=== PATIENT | female | born 1975 | race Caucasian/White ===

== ENCOUNTER 2017-04-19 14:04 | Emergency (ER) | payer MEDICAID, SELFPAY ==
[2017-04-19 14:05] VITALS: BP 168/119; PULSE 123; RESP 18; TEMP 36.8; O2SAT 98; BMI 18.3
[2017-04-19 14:28] LABS: Bacteria 0 SEEN /hpf (None Seen); Mucous, Urine 0 SEEN /hpf (<or=2+); Squamous Epithelial Cells - UA 0 SEEN /hpf (5-10)
[2017-04-19 14:33] LABS: Color, Urine Red (Yellow); Glucose, Dipstick Normal (Normal); Ketone-Dipstick 5 mg/dl (Negative); Leukocyte Esterase-Dipstick 500 /ul (Negative); Nitrite-Dipstick Negative (Negative); Occult Blood-Urine 250 /ul (Negative); Protein-Dipstick 500 mg/dl (Negative); Urine Bilirubin Dipstick Negative (Negative); Urine Clarity Turbid (Clear); Urine Urobilinogen Normal (Normal)
--- NOTE | 2017-04-19 14:33 | ED.VISSUMM ---
- ER Visit Summary Date of Service: 04/19/17 Chief Complaint: Dysuria, frequency, urgency and low back pain History of Present Illness: The patient is a 41 F who has history of urinary tract infections. No history of pyelonephritis. She denies headache, visual, ocular or auditory symptoms. She denies fever, chills or night sweats. She denies any cardiac, respiratory or abdominal symptoms. There is no history of trauma. She has no antibiotic allergies. Physical Examination: Vital signs are remarkable for an elevated blood pressure 168/119 and a heart rate 123. She appears uncomfortable. HEENT exam is unremarkable. Heart is regular without murmur, gallop or rub. S1 and S2 are normal. Lungs are clear to auscultation with good movement of air bilaterally. Abdomen is remarkable for tenderness in the suprapubic region. There is no CVA tenderness noted. There is no evidence of inguinal hernia or inguinal lymphadenopathy. No skin lesions are noted. Neuro exam is nonfocal. Test Results: Urine reveals leukoesterase 500 and blood 250 with 5 ketones. Micro reveals 0 WBCs greater than 100 RBCs and 0 epithelial cells. Emergency Department Course and Treatment: UA was obtained. Treatment Plan: Was reevaluated and she has suprapubic discomfort describes a burning pressure sensation when she urinates. Presently she has no pain. She only has discomfort when she urinates. She has no vaginal lesions or discharge. She denies dyspareunia. Disposition: Prescription for Pyridium and ciprofloxacin. Impression: Area with gross hematuria suspect hemorrhagic cystitis This note was generated with [employer] dictation software. It may contain incorrect words, spelling, and punctuation that were not noted in review of the chart prior to signing ED Disposition - Plan for ED Patient: Disposition: Home or Assisted Living Chief Complaint: Complaint Instructions: ED UTI Cystitis Female Prescriptions: Ciprofloxacin [Cipro] 500 mg PO BID #14 tab Phenazopyridine HCl [Pyridium] 200 mg PO TID #10 tab Referrals: Wilbur Andrade MD [Primary Care Provider] - 3-5 Days if not improving
[2017-04-19 14:43] LABS: Red Blood Cells-Urine > 100 SEEN /hpf (0-5); White Blood Cells 0-5 SEEN /hpf (0-5)
[2017-04-19 14:48] LABS: Absolute Lymphocyte Count 1.46 X10^3/ul (0.83-4.51); Absolute Neutrophil Count 7.3 X10^3/uL (2.0-7.7); Basophil# 0.01 X10^3/uL; Basophil% 0.1 % (0-1); Eosinophil# 0.08 X10^3/uL; Eosinophils% 0.9 % (0-5); Hematocrit 45.9 % (37-47); Hemoglobin 16.2 g/dl (12.0-15.0); Lymphocyte # 1.46 X10^3/ul (4.0); Lymphocyte % 15.6 % (19-41); Mean Corp Hgb Conc 35.3 g/gl (32-36); Mean Corpuscular Hgb 30.9 pg (27.0-32.0); Mean Corpuscular Volume 87.6 fL (81-99); Mean Platelet Vol. 10.8 fl (6.2-12.0); Monocyte# 0.46 X10^3/uL; Monocyte% 4.9 % (0-10); Neutrophil # 7.32 X10^3/uL (2.7-7.7); Neutrophil % 78.4 % (47-70); POSITIVE COUNT NO; POSITIVE DIFFERENTIAL NO; POSITIVE MORPHOLOGY NO; Platelet Count 198 K/mm3 (150-450); RBC Distribution Width CV 12.3 % (11.6-14.6); RBC Distribution Width SD 39.5 fl (35.1-43.9); Red Blood Count 5.24 M/mm3 (4.2-5.4); White Blood Count 9.3 K/mm3 (4.4-11.0)
[2017-04-19 15:00] LABS: Anion Gap 8 (5-15); BUN 12 mg/dL (7-18); BUN/Creat Ratio 15.9 RATIO (10-20); Calcium,Total 9.2 mg/dL (8.5-10.1); Chloride 104 mmol/L (98-107); Creatinine, Serum 0.76 mg/dL (0.55-1.02); EST Glomerular Filtration Rate 90 mL/min (>60); Est Glom Filt Rate - Afr Amer 109 mL/min (>60); Estimated Creatinine Clearance 71.38 ml/min; Glucose 89 mg/dL (74-106); Potassium 2.9 mmol/L (3.5-5.1); Sodium Level 141 mmol/L (136-145)
[2017-04-19] MEDS: Phenazopyridine 95 MG Tablet 190 MG PO (15:23)
[2017-04-19] MEDS: Ciprofloxacin 500 MG Tablet PO (15:23)
[2017-04-19 15:24] VITALS: BP 165/120; PULSE 105; RESP 17; O2SAT 99
== END 2017-04-19 15:32 | disposition home or self-care (01) ==
PROVIDERS: Emergency Provider Emergency Medicine; Family Provider Family Medicine; PCP Family Medicine
DX: R30.0 Dysuria (principal); R31.0 Gross hematuria; R03.0 Elevated blood-pressure reading, without diagnosis of hypertension; Z72.0 Tobacco use; Z87.440 Personal history of urinary (tract) infections
CPT/HCPCS: 80048; 81001; 85025; 99283

== ENCOUNTER 2017-06-25 14:54 | Emergency (ER) | payer MEDICAID, SELFPAY ==
[2017-06-25] VITALS (7 sets, daily range): BP systolic 120–210; BP diastolic 78–137; PULSE 67–102; RESP 14–18; TEMP 37.2; O2SAT 97–100; BMI 18.4
--- NOTE | 2017-06-25 16:38 | CT_ITS ---
STUDY: CT BRAIN WITHOUT CONTRAST REASON FOR EXAM: Female, 41 years old. Headache. Hypertension. RADIATION DOSAGE (If Supplied By Facility): CTDIvol = ( 44.99 ) mGy, DLP = ( 745.49 ) mGycm TECHNIQUE: Transaxial CT imaging of the brain was performed without administration of intravenous contrast material. Individualized dose optimization techniques were used for this CT. COMPARISON: None. FINDINGS: There is no acute bleed or infarct. There are normal white matter tracts. The ventricles are normal in configuration. There is no hydrocephalus. The visualized paranasal sinuses are clear. The mastoid air cells are well aerated. There is no skull fracture. CT/Brain/Head without Contrast IMPRESSION: No acute intracranial abnormality. Electronically Signed: Eyad Perla, at 17:28 EDT Tel , Service support ,
--- NOTE | 2017-06-25 16:42 | ED.VISSUMM ---
- ER Visit Summary Date of Service: 06/25/17 Chief Complaint: Blood pressure and headache History of Present Illness: The patient is a 41 F past medical history of migraine headaches. States yesterday she went to the dentist had elevated blood pressures of 160s over 120s. They wanted her to be evaluated but she could make the ER till today. She has never been told she had hypertension. She has not seen a doctor for more than 6 months and cannot remember her last blood pressure readings. She denies being ill. She did state today she did get a diffuse headache different from her migraines. She denies vomiting she denies fever. She denies head trauma. Physical Examination: Well-appearing young female. Blood pressure is elevated at 181/128. Otherwise vital signs are stable afebrile. H EENT exam unremarkable. Pupils round reactive light. No facial droop. Normal speech. Neck nontender. Lungs clear to auscultation bilaterally. Heart regular rhythm no murmur. Abdomen soft nontender. Normal bowel sounds no peritoneal signs. Moving all 4 extremities. Neurovascular intact. Neurologic exam normal. NIH is 0. Bilateral fire operations forester strength. 5 out of 5 dorsi plantarflexion. Normal range of motion upper lower extremities. Fingertip to nose heel to daniels all within normal limits. Test Results: CT of his brain shows no acute abnormality. No bleed. Read by the radiologist reviewed by me. CBC normal. BMP normal with normal renal function. Emergency Department Course and Treatment: The labs be obtained. She will be started on lisinopril for new onset hypertension. Tylenol for it. Treatment Plan: Patient was initially treated with oral antihypertensive. Then hydralazine IV ?2 dosages. Patient is doing much better at this time. Her blood pressure currently is 130/70. Her headache is resolved. She remains neurologically intact. We a long discussion about hypertension. She will follow-up with her primary care physician. She will be started on lisinopril 20 mg once a day. She knows to log her blood pressure. Disposition: discharge Impression: New onset hypertension Acute cephalgia This note was generated with [employer] dictation software. It may contain incorrect words, spelling, and punctuation that were not noted in review of the chart prior to signing ED Disposition - Plan for ED Patient: Chief Complaint: Headache Referrals: Wilbur Andrade, [Primary Care Provider] -
--- NOTE | 2017-06-25 16:45 | ED.DCSUM_ITS ---
- ER Visit Summary Date of Service: 06/25/17 Chief Complaint: Blood pressure and headache History of Present Illness: The patient is a 41 F past medical history of migraine headaches. States yesterday she went to the dentist had elevated blood pressures of 160s over 120s. They wanted her to be evaluated but she could make the ER till today. She has never been told she had hypertension. She has not seen a doctor for more than 6 months and cannot remember her last blood pressure readings. She denies being ill. She did state today she did get a diffuse headache different from her migraines. She denies vomiting she denies fever. She denies head trauma. Physical Examination: Well-appearing young female. Blood pressure is elevated at 181/128. Otherwise vital signs are stable afebrile. H EENT exam unremarkable. Pupils round reactive light. No facial droop. Normal speech. Neck nontender. Lungs clear to auscultation bilaterally. Heart regular rhythm no murmur. Abdomen soft nontender. Normal bowel sounds no peritoneal signs. Moving all 4 extremities. Neurovascular intact. Neurologic exam normal. NIH is 0. Bilateral logistics engineer strength. 5 out of 5 dorsi plantarflexion. Normal range of motion upper lower extremities. Fingertip to nose heel to daniels all within normal limits. Test Results: CT of his brain shows no acute abnormality. No bleed. Read by the radiologist reviewed by me. CBC normal. BMP normal with normal renal function. Emergency Department Course and Treatment: The labs be obtained. She will be started on lisinopril for new onset hypertension. Tylenol for it. Treatment Plan: Patient was initially treated with oral antihypertensive. Then hydralazine IV ?2 dosages. Patient is doing much better at this time. Her blood pressure currently is 130/70. Her headache is resolved. She remains neurologically intact. We a long discussion about hypertension. She will follow-up with her primary care physician. She will be started on lisinopril 20 mg once a day. She knows to log her blood pressure. Disposition: discharge Impression: New onset hypertension Acute cephalgia This note was generated with [employer] dictation software. It may contain incorrect words, spelling, and punctuation that were not noted in review of the chart prior to signing ED Disposition - Plan for ED Patient: Chief Complaint: Headache Referrals: Wilbur Andrade, [Primary Care Provider] -
[2017-06-25] MEDS: Acetaminophen 500 MG Tablet 1000 MG PO (17:09)
[2017-06-25] MEDS: Lisinopril 10 MG Tablet PO (17:10)
[2017-06-25 18:12] LABS: Hematocrit 40.4 % (37-47); Hemoglobin 13.8 g/dl (12.0-15.0); Mean Corp Hgb Conc 34.2 g/gl (32-36); Mean Corpuscular Hgb 30.5 pg (27.0-32.0); Mean Corpuscular Volume 89.2 fL (81-99); Platelet Count 217 K/mm3 (150-450); RBC Distribution Width CV 12.5 % (11.6-14.6); RBC Distribution Width SD 40.3 fl (35.1-43.9); Red Blood Count 4.53 M/mm3 (4.2-5.4); White Blood Count 9.2 K/mm3 (4.4-11.0)
[2017-06-25 18:17] LABS: Scan Indicated on CBC? Y/N NO
[2017-06-25 18:22] LABS: Anion Gap 7 (5-15); BUN 17 mg/dL (7-18); BUN/Creat Ratio 20.1 RATIO (10-20); Calcium,Total 8.3 mg/dL (8.5-10.1); Chloride 107 mmol/L (98-107); Creatinine, Serum 0.85 mg/dL (0.55-1.02); EST Glomerular Filtration Rate 79 mL/min (>60); Est Glom Filt Rate - Afr Amer 96 mL/min (>60); Estimated Creatinine Clearance 64.11 ml/min; Glucose 82 mg/dL (74-106); Sodium Level 140 mmol/L (136-145)
[2017-06-25] MEDS: Metoprolol Tartrate 5 MG/5 ML Vial IV (18:48)
[2017-06-25] MEDS: hydrALAZINE 20 MG/ML Vial 10 MG IV ×3 (20:34→22:55)
[2017-06-25] MEDS: Ketorolac 30 MG/ML Syringe IV (22:49)
--- NOTE | 2017-06-26 00:05 | ED.DEP ---
ED Disposition - Plan for ED Patient: Disposition: Home or Assisted Living Chief Complaint: Headache Instructions: ED Hypertension New Begin Tx Prescriptions: Lisinopril [Zestril] 20 mg PO DAILY #30 tab Referrals: Wilbur Andrade DO [Primary Care Provider] - As soon as possible Additional Instructions: Log blood pressures twice daily. Call and follow-up with your primary care physician. Take your blood pressure medication once a day. Return if feeling worse.
[2017-06-26 00:22] VITALS: BP 117/85; PULSE 64; RESP 12; O2SAT 98
--- NOTE | 2017-06-26 00:24 | ED.RN ---
PT GIVEN WRITTEN AND VERBAL DISCHARGE INSTRUCTIONS AND HOME GOING PRESCRIPTIONS. PT VERBALIZES UNDERSTANDING. IV D/C AND COVERED WITH 2X2 GAUZE DRESSING AND PAPER TAPE. PT AMBULATORY HOME WITH FAMILY.
== END 2017-06-26 00:27 | disposition home or self-care (01) ==
PROVIDERS: Emergency Provider Emergency Medicine; Family Provider Family Medicine; PCP Family Medicine
DX: I10 Essential (primary) hypertension (principal); R51 Headache; Z72.0 Tobacco use
CPT/HCPCS: 70450; 80048; 85027; 96361; 96374; 96375; 96376; 99284; A4216

== ENCOUNTER 2017-11-22 20:57 | Emergency (ER) | payer SELFPAY ==
[2017-11-22 20:57] VITALS: BP 139/96; PULSE 69; RESP 15; TEMP 36.4; BMI 21.0
[2017-11-22 23:25] LABS: Mucous, Urine 0 SEEN /hpf (<or=2+); Red Blood Cells-Urine 0 SEEN /hpf (0-5)
[2017-11-22 23:27] LABS: Color, Urine Yellow (Yellow); Glucose, Dipstick Normal (Normal); Ketone-Dipstick Negative (Negative); Leukocyte Esterase-Dipstick Negative /ul (Negative); Nitrite-Dipstick Negative (Negative); Occult Blood-Urine Negative /ul (Negative); Protein-Dipstick Negative (Negative); Urine Bilirubin Dipstick Negative (Negative); Urine Clarity Clear (Clear); Urine Urobilinogen Normal (Normal); Urine pH 6.5 (5.0 - 8.0)
[2017-11-22 23:37] LABS: Bacteria RARE /hpf (None Seen); Squamous Epithelial Cells - UA 0-5 SEEN /hpf (5-10); White Blood Cells 0-5 SEEN /hpf (0-5)
--- NOTE | 2017-11-22 23:59 | ED.DEP ---
ED Disposition - Plan for ED Patient: Chief Complaint: General Illness Instructions: ED Allergic Conjunctivitis, ED Otitis Externa Referrals: Wilbur Andrade DO [Primary Care Provider] -
--- NOTE | 2017-11-23 00:03 | ED.VISSUMM ---
- ER Visit Summary Date of Service: 11/23/17 Chief Complaint: Left ear, left eye pain History of Present Illness: The patient is a 42 F presenting with redness of her left eye and pain of her left ear. This has been going on for 2 days. She states this morning her left eye was matted shut. She denies fever. She also has frequent ear infections. She is also concerned about possibility of UTI. She has mild low back pain and mild urinary frequency with no dysuria. No other complaints. Physical Examination: Vitals are stable. Patient is afebrile. Alert no acute distress. HEENT exam left conjunctivae injected, PERRL, EOMI. Eyelid everted and no foreign body visualized. Pain with movement of the left tragus. Left TM is normal. No mastoid tenderness. Neck is supple. No meningismus Lungs are clear and equal bilaterally. Heart is regular rate and rhythm. Abdomen is soft nontender nondistended. Back: nontender, no CVA tenderness Extremities are unremarkable. Skin is warm and dry. No rash No focal neurologic deficit. Remainder of exam is unremarkable. Emergency Department Course and Treatment: Urinalysis is unremarkable. She was given Naprosyn p.o. She was given Otocort drops for her left ear and bacitracin ophthalmic ointment for her left eye. Advised to follow-up with her primary care physician. Advised return ED for worsening complaints. Disposition: Discharge home Impression: Left conjunctivitis, left otitis externa This note was generated with [employer] dictation software. It may contain incorrect words, spelling, and punctuation that were not noted in review of the chart prior to signing ED Disposition - Plan for ED Patient: Chief Complaint: General Illness Instructions: ED Allergic Conjunctivitis, ED Otitis Externa Referrals: Wilbur Andrade DO [Primary Care Provider] -
[2017-11-23] MEDS: Naproxen 500 MG Tablet PO (00:06)
[2017-11-23] MEDS: Neomycin Sulfate/Polymyxin/Hc Susp 10 ML Bottle 4 DRP OTIC (00:06)
[2017-11-23 00:14] VITALS: BP 134/95; PULSE 65; RESP 16; O2SAT 95
== END 2017-11-23 00:15 | disposition home or self-care (01) ==
PROVIDERS: Emergency Provider Emergency Medicine; Family Provider Family Medicine; PCP Family Medicine
DX: H60.92 Unspecified otitis externa, left ear (principal); H10.9 Unspecified conjunctivitis; R35.0 Frequency of micturition; M54.5 Low back pain; Z72.0 Tobacco use
CPT/HCPCS: 81001; 99282

== ENCOUNTER 2018-01-08 16:43 | Emergency (ER) | payer SELFPAY ==
[2018-01-08 16:44] VITALS: BP 143/95; PULSE 99; RESP 14; TEMP 36.8; O2SAT 98; BMI 21.3
[2018-01-08] MEDS: HYDROmorphone 0.5 MG/0.5 ML SYRINGE IM (17:23)
--- NOTE | 2018-01-08 17:28 | ED.DCSUM_ITS ---
- ER Visit Summary Date of Service: 01/08/18 Chief Complaint: Abscess History of Present Illness: The patient is a 42 F presents to the emergency department abscess on her abdominal wall. Patient had the symptoms for the past week. She states she does have a small cyst aware that will from time to time get infected. She has no history of Crohn's disease or ulcerative colitis. She had no abdominal pain, nausea, or vomiting. She denies any other systemic symptoms. She is been taking Tylenol with little improvement. She does not think she has a history of MRSA. Physical Examination: Vital signs reviewed General: Well-nourished, well-developed Head: Normocephalic, atraumatic Eyes: Pupils equal and reactive, extraocular muscles intact Neck, supple, no lymphadenopathy Heart: Regular rate and rhythm Respiratory: No distress, clear bilaterally Abdomen: Soft, mildly tender in the upper abdomen with a 1.5 cm ovoid abscess with 5 cm of surrounding cellulitis, nondistended, no peritoneal signs Back: Nontender Extremities: Nontender, no edema, no cords Skin: Normal color no rash Neuro: Alert and oriented, no focal or lateralizing deficits Test Results: [] Emergency Department Course and Treatment: The patient has an abdominal wall abscess. She has had these recurrently and does seem as if she has an infected sebaceous cyst. The area was anesthetized. It was opened and there was some scant purulence and a lot of sebaceous material. I was unable to remove the entire cyst. She will be placed on Bactrim given the surrounding cellulitis. She also given a short course of analgesics. She was counseled on concerning symptoms and reasons to return. She is discharged home. Treatment Plan: [] Disposition: Discharge Impression: 1. Abdominal wall infected sebaceous cyst with incision and drainage This note was generated with [employer] dictation software. It may contain incorrect words, spelling, and punctuation that were not noted in review of the chart prior to signing ED Disposition - Plan for ED Patient: Disposition: Home or Assisted Living Chief Complaint: Abscess Instructions: ED Abscess IandD Prescriptions: Oxycodone HCl/Acetaminophen [Percocet 5/325] 1 tab PO Q6H PRN PRN 3 Days #6 tab PRN Reason: Pain Smz/Tmp Ds [Bactrim Ds] 1 tab PO BID #14 tab Referrals: Wilbur Andrade DO [Primary Care Provider] -
[2018-01-08 18:13] VITALS: BP 143/99; PULSE 89; RESP 16; O2SAT 99
[2018-01-08] MEDS: Smz/Tmp Ds Tablet 1 TABLET PO (18:14)
== END 2018-01-08 18:16 | disposition home or self-care (01) ==
PROVIDERS: Emergency Provider Emergency Medicine; Family Provider Family Medicine; PCP Family Medicine
DX: L02.211 Cutaneous abscess of abdominal wall (principal); L03.311 Cellulitis of abdominal wall; L72.3 Sebaceous cyst
CPT/HCPCS: 10060; 96372; 99283

== ENCOUNTER 2018-03-14 09:11 | Emergency (ER) | payer SELFPAY ==
[2018-03-14 09:11] VITALS: BP 155/105; PULSE 90; RESP 18; TEMP 36.6; O2SAT 99; BMI 21.0
--- NOTE | 2018-03-14 09:28 | ED.DCSUM_ITS ---
- ER Visit Summary Date of Service: 03/14/18 Chief Complaint: Migraine History of Present Illness: The patient is a 42 F with a headache today. This came on gradually. Symptoms are severe. The pain is in her occipital region. She has a history of migraines. Photophobia and phonophobia. Denies trauma. Denies blood thinners. Denies fever or recent illness. She does report some urinary urgency and frequency. She has a history of a hysterectomy. Physical Examination: Afebrile and vital signs unremarkable except for a blood pressure of 155/105. Head and neck are atraumatic. Cranial nerve testing grossly intact. No focal or lateralizing neurologic abnormalities. Heart r egular. Lungs clear. Abdomen soft. Skin normal. Test Results: Urinalysis pending. Emergency Department Course and Treatment: Patient treated with fluids, Toradol, Compazine, and Benadryl. Will check urinalysis and reassess. Urinalysis shows signs of a UTI. She was treated with Macrobid. On reevaluation, headache is much improved. Patient drowsy. She would like to go home. Advised not to drive. Patient voiced understanding. Follow-up with primary care. Return for any new or worsening issues. Treatment Plan: As above Disposition: Discharge Impression: 1. Migraine 2. UTI, cystitis This note was generated with [employer] dictation software. It may contain incorrect words, spelling, and punctuation that were not noted in review of the chart prior to signing ED Disposition - Plan for ED Patient: Chief Complaint: Headache Referrals: NOT,DEFINED [NON-STAFF] -
[2018-03-14 09:46] LABS: Red Blood Cells-Urine 0 SEEN /hpf (0-5); Squamous Epithelial Cells - UA 0 SEEN /hpf (5-10)
[2018-03-14 09:50] LABS: Color, Urine Yellow (Yellow); Glucose, Dipstick Normal (Normal); Ketone-Dipstick 5 mg/dl (Negative); Leukocyte Esterase-Dipstick 500 /ul (Negative); Nitrite-Dipstick Positive (Negative); Occult Blood-Urine 150 /ul (Negative); Protein-Dipstick 100 mg/dl (Negative); Specific Gravity, Urine 1.015 (1.002-1.030); Urine Bilirubin Dipstick Negative (Negative); Urine Clarity Cloudy (Clear); Urine Urobilinogen 1 mg/dl (Normal); Urine pH 6.5 (5.0 - 8.0)
[2018-03-14] MEDS: 0.9% Normal Saline 1,000 ML 999 ML IV (09:58)
[2018-03-14] MEDS: Ketorolac 30 MG/ML Syringe IV (09:58)
[2018-03-14] MEDS: proCHLORPERazine 10 MG/2 ML Vial IV (09:58)
[2018-03-14] MEDS: DiphenhydrAMINE 50 MG/ML Syringe 25 MG IV (09:59)
[2018-03-14 10:09] LABS: Mucous, Urine 1+ /hpf (<or=2+); White Blood Cells >100 SEEN /hpf (0-5)
[2018-03-14 10:10] LABS: Bacteria 2+ /hpf (None Seen)
--- NOTE | 2018-03-14 10:22 | ED.DEP ---
ED Disposition - Plan for ED Patient: Chief Complaint: Headache Instructions: ED Headache Migraine Prescriptions: Nitrofurantoin Macrocrystals [Macrobid] 100 mg PO Q12 #10 cap
[2018-03-14] MEDS: Nitrofurantoin Macrocrystals 100 MG Capsule PO (10:46)
--- NOTE | 2018-03-14 10:46 | ED.RN ---
PT DRIVING HOME DESPITE BEING ADVISED NOT TO DRIVE
[2018-03-14 10:47] VITALS: BP 152/102; PULSE 66; RESP 16; O2SAT 99
== END 2018-03-14 10:47 | disposition home or self-care (01) ==
PROVIDERS: Emergency Provider Emergency Medicine; Family Provider Family Medicine; PCP Family Medicine
DX: G43.909 Migraine, unspecified, not intractable, without status migrainosus (principal); N30.90 Cystitis, unspecified without hematuria; R11.2 Nausea with vomiting, unspecified; R51 Headache; Z72.0 Tobacco use; Z90.710 Acquired absence of both cervix and uterus
CPT/HCPCS: 81001; 96361; 96374; 96375; 99285; J7030; A4216

== ENCOUNTER 2018-04-15 11:55 | Emergency (ER) | payer SELFPAY ==
[2018-04-15 11:57] VITALS: BP 158/105; PULSE 87; RESP 16; TEMP 37.1; O2SAT 97; BMI 20.6
--- NOTE | 2018-04-15 12:43 | ED.VISSUMM ---
- ER Visit Summary Date of Service: 04/15/18 Chief Complaint: [Cough] History of Present Illness: The patient is a 42 F [presents to the emergency department with cough that started about 1-1/2-2 weeks ago. Patient states that cough has been productive but she just either spits out or swallows which she is bringing up and does not really look at the color of it. She has had subjective fever and chills. Patient has a friend that she lives with who also had been ill recently with similar illness. Patient states she is missed a lot of work secondary to her illness. Patient also with history of hypertension and states she has been without her medications for quite some time due to the fact that she moved out of town and then has had no insurance.] Physical Examination: [HEENT-PERRLA, EOMI. Cranial nerves II through XII grossly intact. TMs clear. Mucous membranes moist. No adenopathy. Cardiovascular-regular rate and rhythm without murmur or ectopy Lungs-clear to auscultation, chest wall stable without crepitus or subcu emphysema Abdomen-normoactive bowel sounds, soft, nontender, no rebound or rigidity, no peritoneal signs. Extremities-intact ?4, normal range of motion, normal pulses, atraumatic] Test Results: [None indicated] Emergency Department Course and Treatment: [Patient was started on doxycycline and dispensed an albuterol MDI.] Treatment Plan: [Patient will be treated with Tessalon Perles, doxycycline, and albuterol. Patient was given a prescription for lisinopril which is what she used to be on for her hypertension.] Disposition: [Discharged home in stable condition. Patient advised to follow-up with her primary care physician within next 5-7 days.] Impression: [Upper respiratory infection Hypertension Medication refill] This note was generated with [employer] software. It may contain incorrect words, spelling, and punctuation that were not noted in review of the chart prior to signing ED Disposition - Plan for ED Patient: Referrals: Wilbur Andrade DO [Primary Care Provider] -
--- NOTE | 2018-04-15 12:45 | ED.DEP ---
ED Disposition - Plan for ED Patient: Instructions: ED Upper Resp Infec Abx Tx, ED HTN Established Prescriptions: Benzonatate [Tessalon Perle] 200 mg PO TID PRN PRN #20 cap PRN Reason: Cough Lisinopril [Prinivil] 10 mg PO DAILY #30 tab Doxycycline 100 mg PO BID #20 cap Referrals: Wilbur Andrade DO [Primary Care Provider] - 5-7 Days
[2018-04-15] MEDS: Doxycycline 100 MG CAPSULE PO (12:52)
[2018-04-15 12:55] VITALS: PULSE 90; RESP 18
== END 2018-04-15 12:56 | disposition home or self-care (01) ==
LOC: ED 12:51
PROVIDERS: Emergency Provider Emergency Medicine; Family Provider Family Medicine; PCP Family Medicine
DX: J06.9 Acute upper respiratory infection, unspecified (principal); I10 Essential (primary) hypertension; Z76.0 Encounter for issue of repeat prescription; Z72.0 Tobacco use; Z79.899 Other long term (current) drug therapy; Z98.51 Tubal ligation status; Z90.710 Acquired absence of both cervix and uterus
CPT/HCPCS: 99283

== ENCOUNTER → 2018-09-23 09:57 | Outpatient (CLI) | payer MEDICAID, SELFPAY ==
[2018-09-15 14:44] VITALS: BMI 20.6
[2018-09-23 12:58] LABS: ALB/GLOB Ratio 1.1 RATIO (0.9-2.4); AST(SGOT) 6 U/L (15-37); Alanine Aminotransfer ALT/SGPT 18 U/L (13-56); Albumin, Serum 3.8 g/dL (3.2-5.0); Alkaline Phosphatase 71 U/L (45-117); Anion Gap 5 (5-15); BUN 16 mg/dL (7-18); BUN/Creat Ratio 18.6 RATIO (10-20); Calcium,Total 8.9 mg/dL (8.5-10.1); Chloride 109 mmol/L (98-107); Creatinine, Serum 0.86 mg/dL (0.55-1.02); EST Glomerular Filtration Rate 77 mL/min (>60); Est Glom Filt Rate - Afr Amer 94 mL/min (>60); Globulin 3.5 g/dL (2.2-4.2); Glucose 72 mg/dL (74-106); Potassium 4.2 mmol/L (3.5-5.1); Protein, Total 7.3 g/dL (6.4-8.2); Sodium Level 142 mmol/L (136-145)
== END ==
PROVIDERS: Family Provider Family Medicine; PCP Family Medicine; Visit Provider Family Medicine
DX: I10 Essential (primary) hypertension (principal)
CPT/HCPCS: 36415; 80053

== ENCOUNTER 2019-02-19 11:58 | Emergency (ER) | payer SELFPAY ==
[2018-09-15 14:44] VITALS: BMI 20.6
[2019-02-19 12:00] VITALS: BP 140/85; PULSE 77; RESP 18; TEMP 36.4; O2SAT 100; BMI 20.1
--- NOTE | 2019-02-19 13:23 | ED.DCSUM_ITS ---
History of Present Illness Chief Complaint: Hypertension Informant: Patient Onset: Days Narrative: Patient is a 43-year-old female with history of anxiety, migraine headaches and hypertension presenting with headache and neck pain. Outpatient symptoms worse over the past 3 days. Started with neck pain that radiates into her posterior scalp. She states she also has associated shoulder and back pain. She denies any pain with movement of her head or photosensitivity. She is been taking Tylenol intermittently ibuprofen with no significant relief of her symptoms. Patient denies any fever, chills, rash or myalgias. She was concerned this might be associated with her untreated hypertension. She states that she has a history of high blood pressure and resume statin medication but with her new job does not have insurance so she has not been on the medication for the past 3 or 4 months. She denies any weakness, altered sensation or numbness. She denies any vision changes. She denies any other complaints at this time. Past Medical History - Allergies and Home Meds Allergies/Adverse Reactions: Allergies morphine Allergy (Mild, Verified 02/19/19 12:02) Itching hydrocodone bitartrate [From Vicodin] Adverse Reaction (Mild, Verified 02/19/19 12:02) Vomiting Primary Care Physician: Wilbur Andrade DO [Primary Care Provider] - Past Medical History: - - hypertension, anxiety Surgical History: - - Tubal ligation, tonsillectomy, hysterectomy Lives: With Family Smoking Status: Current every day smoker Review of Systems General: Denies: Chills, Fever, Sweats Eyes: Denies: Visual changes - bilaterally, Diplopia ENT: Denies: Rhinorrhea, Sore throat Cardiovascular: Denies: Chest pain, Palpitations Respiratory: Denies: Dyspnea, Cough, Dyspnea on exertion Gastrointestinal: Denies: Abdominal pain, Nausea, Vomiting, Diarrhea, Melena, Hematochezia Genitourinary: Denies: Dysuria, Hematuria, Frequency Musculoskeletal: Reports: Neck pain, Back pain. Denies: Extremity Pain Skin: Denies: Rash, Wounds Neurological: Reports: Headache. Denies: Weakness, Numbness Psych: Reports: Anxiety Physical Exam Vital Signs/Narrative: Vital Signs Temp Pulse Resp BP Pulse Ox 02/19/19 12:00 97.6 F L 77 18 140/85 H 100 Inital Vital Signs reviewed: Yes General: Well nourished, Well developed Head: NC, AT Eyes: Perrl, EOMI ENT: Moist mucous membranes, No rhinorrhea, TM's clear. Negative for: Nasal congestion, Sinus tenderness Neck: Supple, No Lymphadenopathy, No JVD, No Meningismus, Paraspinal Tenderness, - - No midline tenderness Cardiovascular: Regular rate, Regular rhythm, No murmurs Respiratory: No distress, CTA bilaterally, Chest nontender Abdomen: Soft, Nontender, Nondistended, Normal bowel sounds Back: Normal Inspection, - - Mild tenderness to SCM/trapezius bilateral . Negative for: CVA tenderness, Spinal tenderness Extremities: Nontender, No edema Skin: Normal color, No rash Neuro: Alert, Oriented x3, Cranial nerves II-XII grossly intact, Normal Strength, Normal Sensation, Normal DTR, Normal Gait Psychological: Normal affect Diagnostic/Tx/Re-eval - Medical Decision Making Patient is evaluated for headache. She describes as a tension headache that was throbbing in nature comes up from the back of her head that wraps around. She notes that she has been having some neck pain associated with it. She states is different than her migraine headaches. Patient has a lot of muscular neck pain. She does not have meningeal signs and I do not suspect meningitis. She also is afebrile with normal vital signs. Patient is offered a migraine cocktail but states that she has to leave an hour and a half and does not want to wait for that. She states that she has to drive and cannot take anything that is sedating. She is given a prescription for Flexeril but no treatment while in the emergency room. Patient is comfortable with this. In addition she knows she can return if she does not have adequate symptom control. Patient is concerned about her blood pressure as well. It is only minimally elevated. She has normal neurologic exam. This is not a hypertensive emergency. Chart review shows she was on amlodipine/benazepril 5/40. Patient states he would like out a prescription for this that she is willing to pay out of pocket if it is affordable. I did check amlodipine 5 mg and benazepril 40 mg are on the discounted drug list at [facility] and was given a month prescription. She is counseled that for further prescription she needs to follow-up with her primary care doctor. Patient is hoping she will get insurance at the beginning of the year. Patient is counseled on signs and symptoms requiring return to the emergency room. Patient verbalizes agreement and understand this plan. Patient discharged home in stable and improved condition. ED Disposition - Plan for ED Patient: Disposition: Home or Assisted Living Diagnosis: Tension headache Instructions: HEADACHE, Tension, HYPERTENSION, Established Prescriptions: cycloBENZAPRine HCl [Flexeril] 10 mg PO TID PRN PRN #15 tab PRN Reason: Muscle Spasm Prescription Printed Benazepril HCl [Lotensin] 40 mg PO DAILY #30 tab Prescription Printed Amlodipine [Norvasc] 5 mg PO DAILY #30 tab Prescription Printed Referrals: Wilbur Andrade DO [Primary Care Provider] - Additional Instructions: You have been given a one-month supply of your blood pressure medications. He used to take it as a combined pill but it is cheaper to prescribe it as 2 separate pills. It is on the discounted drug list at [facility]. I believe your headache is from muscle spasms in your back and neck. You have prescribed a muscle relaxant for this. If you do not have any improvement come back to the emergency room for reevaluation. Return if you have worsening symptoms.
[2019-02-19 13:52] VITALS: BP 122/95; PULSE 65; RESP 18; O2SAT 96
== END 2019-02-19 13:53 | disposition home or self-care (01) ==
PROVIDERS: Emergency Provider Emergency Medicine; Family Provider Family Medicine; PCP Family Medicine
DX: G44.209 Tension-type headache, unspecified, not intractable (principal); I10 Essential (primary) hypertension; F17.200 Nicotine dependence, unspecified, uncomplicated
CPT/HCPCS: 99282

== ENCOUNTER 2019-04-30 10:56 | Emergency (ER) | payer SELFPAY ==
[2019-04-30 10:58] VITALS: BP 144/93; PULSE 70; RESP 16; TEMP 37; O2SAT 97; BMI 20.1
--- NOTE | 2019-04-30 11:39 | RAD_ITS ---
STUDY: X-RAY - UNILATERAL RIBS ( RIGHT ) WITH CHEST REASON FOR EXAM: Female, 43 years old. Right rib pain, shortness of breath TECHNIQUE - RIBS: 4 view(s) of the ribs. TECHNIQUE - CHEST: Single PA view of the chest. COMPARISON: None. FINDINGS - RIBS: Normal visualized ribs without a demonstrated fracture. FINDINGS - CHEST: The lungs are clear and expanded. There is no demonstrated pleural abnormality. Normal size heart. Normal mediastinum and foster. Normal visualized pulmonary arteries. Normal visualized aortic arch and descending thoracic aorta. Normal visualized thoracic spine. Normal visualized ribs, clavicles, and shoulders. There is no demonstrated abnormality of the visualized soft tissue structures of the upper abdomen. RAD/Ribs Uni Min 3V w/PA Chest IMPRESSION: RIBS: Normal x-ray examination of the ribs. CHEST: Normal x-ray examination of the chest. Electronically Signed: Tarun Gold MD at 12:01 EST , Service support ,
--- NOTE | 2019-04-30 11:52 | ED.VISSUMM ---
- ER Visit Summary Date of Service: 04/30/19 Chief Complaint: Right lower chest and rib pain History of Present Illness: The patient is a 43 F who presents with right lower chest and rib pain that has been constant for the past week. Patient states the pain is sharp. Patient states the pain is worse with coughing and with movement. Patient states the pain improves with rest. Patient states it is gradually gotten worse over the past week. Patient denies any trauma or injury. Patient denies any shortness of breath. Patient admits to some sputum production but does not know what color it is. Patient admits to some rhinorrhea but states she has seasonal allergies. Physical Examination: Vital signs are stable. Patient is afebrile. Patient is in no acute distress. Oral mucosa is pink and moist. Neck is supple. Trachea is midline. There is no JVD. Heart was regular rate and rhythm. Lungs are clear and equal bilaterally. Abdomen is soft. Bowel sounds are normal. There is no tenderness. There is reproducible tenderness over the right lower chest wall. There is no bony crepitance or step-off. Cranial nerves II through XII are intact. There are no focal motor or sensory deficits noted. Test Results: X-rays of the right ribs were obtained. There is no acute rib fracture. There is no acute cardiopulmonary process. Emergency Department Course and Treatment: Patient was advised of her findings. Patient was given prescription for Naprosyn. Patient was instructed to use ice to the area. Patient was instructed to take 10-15 deep breaths every hour while she is awake to prevent atelectasis and pneumonia. Patient was instructed to follow-up with her primary care physician in 5 to 7 days. Patient understood and was agreeable with the plan. All questions were answered. Disposition: Discharge home Impression: Right chest wall strain This note was generated with [employer] dictation software. It may contain incorrect words, spelling, and punctuation that were not noted in review of the chart prior to signing ED Disposition - Plan for ED Patient: Disposition: Home or Assisted Living Diagnosis: Chest wall muscle strain Instructions: Chest Wall Strain Prescriptions: Naproxen [Naprosyn] 500 mg PO BID PRN #20 tab Prescription Printed Referrals: Wilbur Andrade DO [Primary Care Provider] - 5-7 Days
[2019-04-30 12:55] VITALS: RESP 18
== END 2019-04-30 12:56 | disposition home or self-care (01) ==
PROVIDERS: Emergency Provider Emergency Medicine; PCP Family Medicine
DX: S29.011A Strain of muscle and tendon of front wall of thorax, initial encounter (principal); X58.XXXA Exposure to other specified factors, initial encounter; Y93.9 Activity, unspecified; Y92.9 Unspecified place or not applicable; I10 Essential (primary) hypertension; Z72.0 Tobacco use
CPT/HCPCS: 71101; 99282

== ENCOUNTER 2019-11-17 07:49 | Emergency (ER) | payer BC, SELFPAY ==
[2019-11-03 15:11] VITALS: BMI 20.1
[2019-11-17 07:51] VITALS: BP 185/123; PULSE 100; RESP 18; TEMP 36.4; O2SAT 100; BMI 19.1
--- NOTE | 2019-11-17 08:02 | ED.VIS.GEN ---
History of Present Illness Chief Complaint: Headache Informant: Patient Onset: Days Context: Gradual Onset Timing: Continuous Current Severity: Moderate Maximum Severity: Severe Narrative: The patient is a 44-year-old female with medical history significant for hypertension and anxiety that presents to the emergency department with headache. Patient was in her normal state of health. States over the past 4 days, she is had a rather dull, progressive headache. She states there are components that are similar to migraine, but some that are different. It was no gradual onset. She does not describe it as the worst headache of her life. The patient was recently restarted on her antihypertensives. She has been on amlodipine 5 mg for the past 10 days. She states that she lost her insurance and was out of her medications for some time. She was on a combo pill, but they were slowly restarting her medications to prevent lows. She denies chest pain, vision changes, weakness, orthopnea, or other systemic complaints. Prior similar symptoms: Yes Recent Illness/Hospitalization: No Past Medical History - Allergies and Home Meds Allergies/Adverse Reactions: Allergies morphine Allergy (Mild, Verified 11/17/19 07:50) Itching ITCHING AND VOMITING hydrocodone bitartrate [From Vicodin] Adverse Reaction (Mild, Verified 11/17/19 07:50) Vomiting ITCHING AND VOMITING Primary Care Physician: Wilbur Andrade DO [Primary Care Provider] - Prior records reviewed: Yes Past Medical History: - - Hypertension, anxiety Surgical History: - - Tubal ligation, tonsillectomy, hysterectomy Smoking Status: Current every day smoker Review of Systems General: Denies: Chills, Fever, Sweats Eyes: Denies: Visual changes - bilaterally, Diplopia ENT: Denies: Rhinorrhea, Sore throat Cardiovascular: Denies: Chest pain, Palpitations Respiratory: Denies: Dyspnea, Cough, Dyspnea on exertion Gastrointestinal: Reports: Nausea. Denies: Abdominal pain, Vomiting, Diarrhea, Melena, Hematochezia Genitourinary: Denies: Dysuria, Hematuria, Frequency Musculoskeletal: Reports: Neck pain. Denies: Back pain, Extremity Pain Skin: Denies: Rash, Wounds Neurological: Reports: Headache. Denies: Weakness, Numbness Physical Exam Vital Signs/Narrative: Vital Signs Temp Pulse Resp BP Pulse Ox 11/17/19 07:51 97.5 F L 100 18 185/123 H 100 Inital Vital Signs reviewed: Yes General: Well nourished, Well developed, No Acute Distress Head: Normocephalic, Atraumatic Eyes: Perrl, EOMI ENT: Moist mucous membranes, No rhinorrhea Neck: Supple, Nontender Cardiovascular: Regular rate, Regular rhythm, No murmurs Respiratory: No distress, CTA bilaterally, Chest nontender Abdomen: Soft, Nontender, Nondistended, Normal bowel sounds Back: Nontender, Normal Inspection Extremities: Nontender, No edema Skin: Normal color, No rash Neurological: Alert, Oriented x3, Cranial nerves II-XII grossly intact, Normal Strength, Normal Sensation Psychological: Normal affect, Normal Mood Diagnostic/Tx/Re-eval - Medical Decision Making The patient has a reassuring neurologic examination. She is not meningitic or encephalopathic. Her neck is supple. Kernig's and Brudzinski's are negative. She has had no symptoms consistent with hypertensive emergency or press. It was hard to tell if the elevated blood pressure was causing the headache or was secondary to the headache. Again, her exam is reassuring. The patient was treated with migraine abortive medications as she does have significant migraine history. On reevaluation, her blood pressure is markedly improved. She is resting comfortably. I do feel that the most prudent plan will be to resume her second medication, Benazepril, and continue her blood pressure monitoring. The patient is comfortable this plan of care. Impression 1. Migraine headache 2. Hypertension ED Disposition - Plan for ED Patient: Instructions: ED Headache Unspecified Prescriptions: Benazepril HCl 20 mg PO BID #60 tab Prescription Printed Referrals: Wilbur Andrade DO [Primary Care Provider] - Additional Instructions: Start with 1 tablet of the 20 mg of benazepril daily for the first week. I did prescribe 60 tablets, so if your blood pressure is not under better control after week, you can resume the 40 mg dose by taking 2 tablets.
[2019-11-17] MEDS: 0.9% Normal Saline 1,000 ML 999 ML IV (08:06)
[2019-11-17] MEDS: DiphenhydrAMINE 50 MG/ML Syringe IV (08:07)
[2019-11-17] MEDS: Ketorolac 30 MG/ML Syringe IV (08:07)
[2019-11-17] MEDS: proCHLORPERazine 10 MG/2 ML Vial IV (08:07)
[2019-11-17 08:29] VITALS: BP 147/102; PULSE 65; RESP 17
[2019-11-17 08:58] VITALS: BP 147/101; PULSE 61; RESP 15; O2SAT 98
== END 2019-11-17 08:59 | disposition home or self-care (01) ==
LOC: ED 08:07
PROVIDERS: Emergency Provider Emergency Medicine; PCP Family Medicine
DX: G43.909 Migraine, unspecified, not intractable, without status migrainosus (principal); I10 Essential (primary) hypertension; F41.9 Anxiety disorder, unspecified; F17.200 Nicotine dependence, unspecified, uncomplicated; Z91.14 Patient's other noncompliance with medication regimen
CPT/HCPCS: 96361; 96374; 96375; 99284; J7030; A4216

== ENCOUNTER → 2019-12-21 14:03 | Outpatient (CLI) | payer BC, SELFPAY ==
[2019-12-21 13:24] VITALS: BMI 19.0
[2019-12-21 16:44] LABS: Anion Gap 4 (5-15); BUN 16 mg/dL (7-18); BUN/Creat Ratio 20.7 RATIO (10-20); Chloride 107 mmol/L (98-107); Creatinine, Serum 0.77 mg/dL (0.55-1.02); EST Glomerular Filtration Rate 87 mL/min (>60); Est Glom Filt Rate - Afr Amer 105 mL/min (>60); Glucose 96 mg/dL (74-106); Potassium 4.3 mmol/L (3.5-5.1); Sodium Level 138 mmol/L (136-145); T4 Free Direct 0.88 ng/dL (0.76-1.46)
== END ==
LOC: BIMLAB 14:04
PROVIDERS: PCP Family Medicine; Referring Provider Family Medicine; Visit Provider Family Medicine
DX: I10 Essential (primary) hypertension (principal)
CPT/HCPCS: 36415; 80048; 84439

== ENCOUNTER → 2020-01-14 07:04 | Outpatient (CLI) | payer BC, SELFPAY ==
[2019-12-21 13:24] VITALS: BMI 19.0
--- NOTE | 2020-01-14 07:04 | BI_ITS ---
MAMMOGRAPHY - BILATERAL SCREENING REASON FOR EXAM: Female, 44 years old. Routine annual screening examination. PERTINENT HISTORY: Grandmother with breast cancer. Remote left ultrasound-guided breast biopsy. TECHNIQUE: Digital bilateral breast silvino (3D mammographic acquisition) in the CC and MLO projections. 2-D mediolateral oblique (MLO) and craniocaudad (CC) views of both breasts were obtained. CAD: Full Field Digital Mammography with Computer Added Detection was performed. COMPARISON: Comparison is made with prior study dated 02/03/2012. FINDINGS: Breast Composition: The breasts are heterogeneously dense, which may obscure small masses. There are no dominant masses or suspicious calcifications. A tissue clip marker is seen in the deep upper lateral portion of the left breast. No other significant abnormalities are identified. There has been no significant change since the prior study. BI/SCREEN MAMM (CAD) W/SILVINO BILAT IMPRESSION: Stable bilateral screening mammogram. Yearly follow-up mammogram recommended. (A) ASSESSMENT CATEGORY: BIRADS Category 2: Benign. A letter regarding these results will be sent to the patient by the facility within 30 days. Approximately 10% of breast cancers are not detected by mammography. A normal mammogram should not delay biopsy of a clinically suspicious abnormality. [id number] Electronically Signed: Calos Vo, at 8:43 EST , Service support ,
== END ==
PROVIDERS: PCP Family Medicine; Referring Provider Family Medicine; Visit Provider Family Medicine
DX: Z12.31 Encounter for screening mammogram for malignant neoplasm of breast (principal)
CPT/HCPCS: 77063; 77067

== ENCOUNTER → 2020-02-11 | Outpatient (CLI) | payer BC, SELFPAY ==
[2020-02-11 15:41] LABS: Mucous, Urine 0 SEEN /hpf (<or=2+); Red Blood Cells-Urine 0 SEEN /hpf (0-5)
[2020-02-11 16:50] LABS: Color, Urine Yellow (Yellow); Glucose, Dipstick Normal (Normal); Ketone-Dipstick 5 mg/dl (Negative); Leukocyte Esterase-Dipstick 25 /ul (Negative); Nitrite-Dipstick Negative (Negative); Occult Blood-Urine Negative /ul (Negative); Protein-Dipstick 30 mg/dl (Negative); Specific Gravity, Urine 1.025 (1.002-1.030); Urine Bilirubin Dipstick Negative (Negative); Urine Clarity Clear (Clear); Urine Urobilinogen Normal (Normal)
[2020-02-11 17:09] LABS: Bacteria 2+ /hpf (None Seen); Squamous Epithelial Cells - UA 0-5 SEEN /hpf (5-10); White Blood Cells 0-5 SEEN /hpf (0-5)
== END | disposition home or self-care (01) ==
LOC: LABSPEC 15:40
PROVIDERS: PCP Family Medicine; Referring Provider Nurse Practitioner Family; Visit Provider Nurse Practitioner Family
DX: R30.0 Dysuria (principal)
CPT/HCPCS: 81001; 87086; 87088

== ENCOUNTER → 2020-02-29 | Outpatient (CLI) | payer BC, SELFPAY ==
[2020-02-29 13:34] VITALS: BMI 19.8
[2020-03-03 05:07] LABS: Chlamydia By Nucleic Acid AMP Negative (Negative)
[2020-03-06 09:54] LABS: Gonococcus By Nucleic Acid AMP Negative (Negative)
== END | disposition home or self-care (01) ==
LOC: LABSPEC 16:39
PROVIDERS: PCP Family Medicine; Visit Provider Nurse Practitioner Women's Health
DX: Z11.3 Encounter for screening for infections with a predominantly sexual mode of transmission (principal); R10.2 Pelvic and perineal pain
CPT/HCPCS: 87070; 87205; 87491; 87591

== ENCOUNTER → 2020-03-15 15:55 | Outpatient (CLI) | payer BC, SELFPAY ==
[2020-02-29 13:34] VITALS: BMI 19.8
--- NOTE | 2020-03-15 16:00 | US_ITS ---
STUDY: ULTRASOUND OF THE FEMALE PELVIS - COMPLETE REASON FOR EXAM: Female, 44 years old. PELVIC PAIN TECHNIQUE: Transabdominal and endovaginal TECHNICAL QUALITY: Adequate. COMPARISON: None. FINDINGS: The uterus is not present The right ovary is visualized. The right ovary measures 2.6 x 2.1 x 1.6 cm. There is a 1.8 x 1.2 x 1.5 cm right ovarian complex lesion. There is normal arterial and normal venous vascularity. The left ovary is not present. There is no fluid in the cul-de-sac. The pre void volume of the bladder was 218 ml. Polycystic ovary disease: No. US/Transvaginal Non- IMPRESSION: Complex partially cystic right ovarian lesion. Status post hysterectomy and left oophorectomy. Electronically Signed: Arsenio Pate DO at 16:51 EST Tel [phone], Service support ,
--- NOTE | 2020-03-15 16:00 | US_ITS ---
STUDY: ULTRASOUND OF THE FEMALE PELVIS - COMPLETE REASON FOR EXAM: Female, 44 years old. PELVIC PAIN TECHNIQUE: Transabdominal and endovaginal TECHNICAL QUALITY: Adequate. COMPARISON: None. FINDINGS: The uterus is not present The right ovary is visualized. The right ovary measures 2.6 x 2.1 x 1.6 cm. There is a 1.8 x 1.2 x 1.5 cm right ovarian complex lesion. There is normal arterial and normal venous vascularity. The left ovary is not present. There is no fluid in the cul-de-sac. The pre void volume of the bladder was 218 ml. Polycystic ovary disease: No. US/Pelvic (Non ) IMPRESSION: Complex partially cystic right ovarian lesion. Status post hysterectomy and left oophorectomy. Electronically Signed: Arsenio Pate DO at 16:51 EST Tel [phone], Service support ,
== END ==
LOC: US 15:59
PROVIDERS: PCP Family Medicine; Referring Provider Nurse Practitioner Women's Health; Visit Provider Nurse Practitioner Women's Health
DX: R10.2 Pelvic and perineal pain (principal)
CPT/HCPCS: 76830; 76856

== ENCOUNTER → 2020-04-07 09:51 | Outpatient (CLI) | payer BC, SELFPAY ==
[2020-04-07 08:58] VITALS: BMI 19.5
--- NOTE | 2020-04-07 09:53 | RAD_ITS ---
STUDY: X-RAY - UNILATERAL RIBS ( LEFT ) WITH CHEST REASON FOR EXAM: Female, 44 years old. left anterior rib pain under breast x 1 week -- no injury -- 3rd time in a year this pain has come back TECHNIQUE - RIBS: 2 view(s) of the ribs. TECHNIQUE - CHEST: Single PA view of the chest. COMPARISON: Chest and right rib series dated April 30, 2019 FINDINGS - RIBS: Normal visualized ribs without a demonstrated fracture. FINDINGS - CHEST: Left breast biopsy clip noted. The lungs are clear and expanded. There is no demonstrated pleural abnormality. Normal size heart. Normal mediastinum and foster. Normal visualized pulmonary arteries. Normal visualized aortic arch and descending thoracic aorta. Normal visualized thoracic spine. Normal visualized ribs, clavicles, and shoulders. There is no demonstrated abnormality of the visualized soft tissue structures of the upper abdomen. RAD/Ribs Uni Min 3V w/PA Chest IMPRESSION: RIBS: Normal x-ray examination of the ribs. CHEST: Normal x-ray examination of the chest. Electronically Signed: Johann Sorensen MD at 23:52 EST , Service support ,
== END ==
LOC: MTRAD 09:53
PROVIDERS: PCP Family Medicine; Referring Provider Nurse Practitioner Family; Visit Provider Nurse Practitioner Family
DX: R07.81 Pleurodynia (principal)
CPT/HCPCS: 71101

== ENCOUNTER → 2020-09-28 | Outpatient (CLI) | payer BC, SELFPAY ==
[2020-09-28 13:59] LABS: Red Blood Cells-Urine 0 SEEN /hpf (0-5); White Blood Cells 0 SEEN /hpf (0-5)
[2020-09-28 15:16] LABS: Color, Urine Yellow (Yellow); Glucose, Dipstick Normal (Normal); Ketone-Dipstick Negative (Negative); Leukocyte Esterase-Dipstick Negative /ul (Negative); Nitrite-Dipstick Negative (Negative); Occult Blood-Urine Negative /ul (Negative); Protein-Dipstick Negative (Negative); Urine Bilirubin Dipstick Negative (Negative); Urine Clarity Clear (Clear); Urine Urobilinogen Normal (Normal)
[2020-09-28 15:22] LABS: Bacteria RARE /hpf (None Seen); Mucous, Urine RARE /hpf (<or=2+); Squamous Epithelial Cells - UA 0-5 SEEN /hpf (5-10)
== END | disposition home or self-care (01) ==
LOC: LABSPEC 13:57
PROVIDERS: PCP Family Medicine; Referring Provider Family Medicine; Visit Provider Family Medicine
DX: R30.0 Dysuria (principal)
CPT/HCPCS: 81001

== ENCOUNTER → 2020-10-11 14:23 | Outpatient (CLI) | payer BC, SELFPAY ==
--- NOTE | 2020-10-11 14:27 | US_ITS ---
STUDY: ULTRASOUND BREAST - LEFT REASON FOR EXAM: Female, 45 years old. TECHNIQUE: Axial and longitudinal images of the LEFT breast were performed with a high resolution ultrasound transducer. # OF IMAGES: 21 COMPARISON: Recent mammogram obtained on 10/11/2020 at 3:01 PM FINDINGS: LEFT Breast: There are 2 lesions seen in the superior aspect of the left breast. The larger palpable mass lesion in the superior aspect the left breast has a mildly lobular contour with a well-defined margin and is solid this mass lesion measures 3.3 x 1.5 cm in size. Adjacent to this lesion is a smaller solid lesion which is also hypoechoic and has a mildly lobular contour measuring 1.24 x 0.7 cm in size. These 2 adjacent lesions are seen on the mammogram and are suspicious for either a large fibroadenoma adenomas or cancer. An ultrasound directed breast biopsy of both these lesions is recommended for further evaluation. Unfortunately a third lesion later noted on the mammogram in the medial aspect of the left breast at about the 10 o''clock position did not have ultrasound evaluation. This has a somewhat spiculated appearance and may also represent tumor. At the time of the ultrasound directed breast biopsy is this lesion should also be evaluated and perhaps biopsy. US/Breast Limited Unilateral IMPRESSION: 1. 2 relatively large solid lobular lesions are noted in the superior aspect of the left breast as described above. Fibroadenomas versus cancer the prime diagnostic considerations and an ultrasound directed breast biopsy is recommended for further evaluation 2. A small irregular spiculated density is noted in the deep left breast at the 10 o''clock position which was not seen on this recent ultrasound examination. This third lesion should be evaluated with ultrasound and possibly biopsied if indicated. ASSESSMENT CATEGORY: BIRADS Category 4C: High suspicion for malignancy. A letter regarding these results will be sent to the patient by the facility within 30 days. Electronically Signed: Kali Young DO at 16:16 EDT Tel , Service support ,
--- NOTE | 2020-10-11 14:27 | BI_ITS ---
MAMMOGRAPHY - BILATERAL DIAGNOSTIC REASON FOR EXAM: Female, 45 years old. LUMP PERTINENT HISTORY: Soft tissue masslike density in the superior aspect of the left breast 12 o''clock position TECHNIQUE: Digital examination. Mediolateral oblique (MLO) and craniocaudad (CC) views of both breasts were obtained. CAD: COMPARISON previous mammogram obtained on 01/14/2020 FINDINGS: Breast Composition: Heterogeneously dense Now noted is a dominant soft tissue masslike density noted at the 12 o''clock position of the mid left breast which has definitely increased in size when compared with the previous study. This masslike lesion measures approximately 2.5 x 2 cm in size Slightly lateral and deeper to this lesion is an additional nodular density measuring about 1 cm in size. A possible third lesion which is deeper in a more medial aspect the left breast at the 10 o''clock position is identified. These 3 lesions are suspicious and a targeted breast ultrasound is recommended for additional evaluation. The right breast ultrasound is normal. BI/DIAG MAMM W/CAD, BILAT IMPRESSION: 1. Abnormal left breast mammogram with a large new 2.5 x 2 cm mass lesion at the 12 o''clock position of the left breast and an adjacent smaller 1 cm lesion at the 1 o''clock position of the left breast. 2. A third smaller irregular mass lesion is noted measuring about 1 cm in size deep in the left breast at about 10 o''clock position. ASSESSMENT CATEGORY: BIRADS Category 1: Negative. A letter regarding these results will be sent to the patient by the facility within 30 days. FOLLOW UP RECOMMENDATION: Ultrasound Recommended. (I) Approximately 10% of breast cancers are not detected by mammography. A normal mammogram should not delay biopsy of a clinically suspicious abnormality. Electronically Signed: Kali Young DO at 16:09 EDT Tel , Service support ,
== END ==
PROVIDERS: PCP Family Medicine; Visit Provider Family Medicine
DX: N63.25 Unspecified lump in the left breast, overlapping quadrants (principal); N63.22 Unspecified lump in the left breast, upper inner quadrant; N63.21 Unspecified lump in the left breast, upper outer quadrant
CPT/HCPCS: 76642; 77062; 77066; G0279

== ENCOUNTER → 2020-10-18 | Outpatient (CLI) | payer BC, SELFPAY ==
--- NOTE | 2020-10-18 10:00 | BRBX_PTH ---
PATIENT: TRINIDAD MELENDEZ LOC: [facility] U#:[id number] AGE/SX: 45/F ROOM: RE10/18/[address]: Dr. Suleman Grant MD : [id number] BED: DIS: 10/18/2020 SPEC #: [id number] RECD: 10/18/20 11:01 STATUS: HAILY REQ #: [id number] BRENDA: 10/18/20 10:[address]: Suleman Grant DEPT: SURGICAL PATHOLOGY RECD BY: Carmen Portillo ENTERED: 10/18/20 13:32 SP TYPE: BREAST BX OTHR DR: Dr. Wilbur Andrade, DO Tissues: A - Left breast, NOS B - Left breast, NOS Procedures: Surgery Specimen Level IV Comments: @ Originally on account #[id number] Req #[id number] HEADER OPERATION: Left breast biopsy x2 PRE-OP DIAGNOSIS: Left breast masses TISSUE SUBMITTED: A ? Left breast 12 o?clock lateral, B - Left breast 12 o?clock medial MICROSCOPIC DIAGNOSIS A. Left breast at 12 o?clock, lateral, core biopsy: Fibroadenoma. B. Left breast at 12 o?clock, medial, core biopsy: Fibroadenoma. AM:martha 10/19/2020 COMMENT A benign phyllodes tumor cannot be entirely excluded. Clinical correlation is suggested. Reference is made to the patient's left breast nodule, core biopsy from 2011 ([id number]) in which changes of fibroadenoma were identified. MICROSCOPIC DESCRIPTION Slides are reviewed. GROSS DESCRIPTION A - Received in fixative is one container labeled with the patient's name and designated left breast 12 o'clock lateral. The specimen consists of multiple elongated fragments of ash-yellow soft tissue that in aggregate measure 1.5 x 1.5 x 0.1 cm. The specimen is totally submitted in one cassette. B - Received in fixative is one container labeled with the patient's name and designated left breast 12 o'clock medial. The specimen consists of multiple elongated fragments of ash-yellow soft tissue that in aggregate measure 2.2 x 0.5 x 0.1 cm. The specimen is totally submitted in one cassette. / AM:martha 10/18/20 TC:5 CPT: 14004 x2
== END | disposition home or self-care (01) ==
LOC: LABSPEC 11:14
PROVIDERS: PCP Family Medicine; Referring Provider Surgery; Visit Provider Surgery
DX: D24.2 Benign neoplasm of left breast (principal)
CPT/HCPCS: 88305

== ENCOUNTER → 2021-02-06 14:21 | Outpatient (CLI) | payer BC, SELFPAY ==
--- NOTE | 2021-02-06 14:27 | US_ITS ---
STUDY: ULTRASOUND BREAST - LEFT REASON FOR EXAM: Female, 45 years old. Left breast lump. TECHNIQUE: Axial and longitudinal images of the LEFT breast were performed with a high resolution ultrasound transducer. # OF IMAGES: 21 COMPARISON: Comparison is made with prior ultrasound dated 10/11/2020 and prior mammogram done earlier today. FINDINGS: LEFT Breast: There is a 3.7 cm x 2.4 cm x 1.6 cm complex solid and cystic nodule at the 12 o''clock position (6 from nipple. This has increased slightly in size as compared to prior study. There is also evidence of a smaller 1.2 cm x 1.1 cm x 0.7 cm hypoechoic predominately cystic nodule adjacent to this. US/Breast Limited Unilateral IMPRESSION: Slight enlargement of the dominant nodule at the 12 o''clock position breast for 6 hours from nipple. ASSESSMENT CATEGORY: BIRADS Category 2: Benign. A letter regarding these results will be sent to the patient by the facility within 30 days. Electronically Signed: Calos Vo MD at 15:19 EST , Service support ,
--- NOTE | 2021-02-06 14:27 | BI_ITS ---
MAMMOGRAPHY - UNILATERAL DIAGNOSTIC: LEFT BREAST REASON FOR EXAM: Female, 45 years old. Post left breast biopsy. PERTINENT HISTORY: Grandmother with breast cancer. TECHNIQUE: Digital unilateral breast rolf (3D mammographic acquisition) in the CC and MLO projections. 2-D mediolateral oblique (MLO) and craniocaudad (CC) views of both breasts were obtained. CAD: Full Field Digital Mammography with Computer Added Detection was performed. COMPARISON: Comparison is made with prior study dated 10/11/2020. FINDINGS: Breast Composition: The breasts are heterogeneously dense, which may obscure small masses. There is a 2.4 cm x 3.7 cm well-defined nodular density in the deep upper slightly lateral aspect of the left breast. This has increased in size as compared to prior study. Tissue clip markers are seen at that site. No other significant abnormalities are identified. BI/DIAG MAMM W/CAD, UNILAT IMPRESSION: Increased size of the nodular density in the left breast as described. Correlation with ultrasound is recommended for further evaluation. ASSESSMENT CATEGORY: BIRADS Category 0: Incomplete. Need additional imaging evaluation. A letter regarding these results will be sent to the patient by the facility within 30 days. Approximately 10% of breast cancers are not detected by mammography. A normal mammogram should not delay biopsy of a clinically suspicious abnormality. Electronically Signed: Calos Vo MD at 15:10 EST , Service support ,
== END ==
PROVIDERS: PCP Family Medicine; Visit Provider Family Medicine
DX: N63.20 Unspecified lump in the left breast, unspecified quadrant (principal)
CPT/HCPCS: 76642; 77061; 77065; G0279

== ENCOUNTER 2021-02-22 08:13 | Day surgery (SDC) | payer BC, SELFPAY ==
--- NOTE | 2021-02-21 09:21 | EKG12_ITS ---
Test Reason : PREOP Blood Pressure : / mmHG Vent. Rate : 068 BPM Atrial Rate : 068 BPM P-R Int : 102 ms QRS Dur : 080 ms QT Int : 376 ms P-R-T Axes : 077 053 064 degrees QTc Int : 399 ms Sinus rhythm with short NE Right atrial enlargement Borderline ECG Confirmed by ETHAN ROSADO, JEAN ([id number]), editor house organ JOSH CAREY ([id number]) on 02/21/2021 10:36:48 AM Referred By: Suleman Grant Confirmed By:JEAN LONG MD
[2021-02-21 09:55] LABS: Hematocrit 44.2 % (37-47); Hemoglobin 15.2 g/dL (12.0-15.0); Mean Corp Hgb Conc 34.4 g/dL (32-36); Mean Corpuscular Hgb 31.9 pg (27.0-32.0); Mean Corpuscular Volume 92.9 fL (81-99); Mean Platelet Vol. 10.1 fl (6.2-12.0); Platelet Count 229 K/mm3 (150-450); RBC Distribution Width CV 12.4 % (11.6-14.6); RBC Distribution Width SD 42.8 fl (35.1-43.9); Red Blood Count 4.76 M/mm3 (4.2-5.4)
[2021-02-22] MEDS: Lactated Ringers 1,000 ML 15 ML IV (08:25)
[2021-02-22 08:43] VITALS: BP 141/82; PULSE 66; RESP 16; TEMP 37.2; O2SAT 95; BMI 20.1
--- NOTE | 2021-02-22 09:28 | HP.PCM_ITS ---
History and Physical Date of Admission: 02/22/21 Intake Intake Visit Reasons: DISCUSS BREAST IMAGING RESULTS Chief Complaint: urinary urgency Allergies morphine Allergy (Mild, Verified 12/27/20 15:57) Itching hydrocodone bitartrate [From Vicodin] Adverse Reaction (Mild, Verified 12/27/20 15:57) Vomiting [facility] Medical History (Updated 02/13/21 @ 15:[address] Suleman Grant MD) Anxiety and depression History of anemia History of migraine Hypertension Surgical History History of hysterectomy History of tonsillectomy History of tubal ligation Family History Mother Thyroid disorder Hyperlipemia Depression Grandmother Cancer Social History household members: significant other and other number of children: 3 current occupational status: employed current occupation: [employer] history of recent travel: No sexually active: Yes Smoking Status: Current every day smoker Tobacco: How many years used: 25 quit status: considering quitting alcohol intake: current alcohol intake frequency: a few times a month substance use type: does not use what type of physical activity do you participate in: walking frequency: daily seatbelt use: always do you feel safe at home: Yes additional social history: boyfriend - Manny Female Reproductive History Menstrual Ab spontaneous: 1 HPI HPI HPI: TRINIDAD MELENDEZ, is a 45 F who presents to the office today for left breast mass increasing in size. Patient had left breast mass biopsy 6 months ago and repeat imaging has shown that it is slightly grown. Patient does report that she feels more often and feels that it is getting larger. ROS General General: No weight change or fatigue HEENT HEENT: No difficulty swallowing Endo Endocrine: No thyroid disease Breast Breast: Yes left breast lump Musc Musculoskeletal: No back problems or arthritis Cardio Cardiovascular: No pacemaker, heart disease, atrial fibrillation, high blood pressure, heart attack, heart stent, palpitations or chest pain Psych Psychiatric: No depression or anxiety Resp Respiratory: No shortness of breath, No cough, No COPD, No asthma and No emphysema Gastro Gastrointestinal: No abdominal pain, No nausea or vomiting, No diarrhea, No constipation, No blood in stool, No acid reflux, No hemorrhoids, No ulcers, No gallbladder problem and No black,tarry stools Reggie Hematologic: No blood thinners Exam Const General: cooperative Orientation: alert and oriented x3 HENMT Head: normal to inspection Neck Neck: normal visual inspection and full ROM Chest Chest palpation & inspection: normal inspection of the chest Breast Palpation: Yes breast mass lrb: Left Resp Effort & Inspection: normal respiratory effort Auscultation: clear to auscultation bilaterally Cardio Rate: regular rate Rhythm: regular rhythm GI Inspection: non-distended Palpation: soft and nontender Skin General: no rashes or lesions noted Neuro General: patient alert and patient oriented x3 Extrem General: full ROM Psych Appearance: grossly normal Mental Status: mental status grossly normal Assessment and Plan Assessment and Plan (1) Breast mass, left: Status: Acute Qualifiers: Breast mass location: upper outer quadrant Qualified Code(s): N63.21 - Unspecified lump in the left breast, upper outer quadrant Plan: Patient has a left breast mass in the upper outer quadrant. Patient had biopsy of 2 left breast masses back in 6 months ago and these were both fibroadenomas. Repeat imaging shows growth of the larger one. I recommended excision for pathology. I did discuss left partial mastectomy with the patient in detail. I discussed ultrasound-guided wire localization. I also discussed that the second one may be removed if it is close enough. I discussed the risks of the procedure including not limited to bleeding, infection, hematoma formation. I also discussed the possibility of having to return to surgery if this is cancerous and has positive margins or the need for sentinel lymph node biopsy in the future. Patient understands all the risks and the procedure and will proceed with left partial mastectomy. Suleman Grant MD Pager: [facility] [address] [place] [address], [address] [place] [address] Office: I have re-examined the patient. There are no clinical changes since date of exam.
--- NOTE | 2021-02-22 10:00 | BREAST_PTH ---
PATIENT: TRINIDAD MELENDEZ [place] [facility] [id number] AGE/SX: 45/F ROOM: RE02/22/[address]: Dr. Suleman Grant MD : 1975 BED: DIS: 02/22/2021 SPEC #: [id number] RECD: 02/22/21 11:28 STATUS: HAILY GRZEGORZ #: [id number] BRENDA: 02/22/21 10:[address]: Suleman Grant DEPT: SURGICAL PATHOLOGY RECD BY: Carmen Portillo ENTERED: 02/22/21 12:13 SP TYPE: BREAST OTHR DR: Dr. Wilbur Andrade, DO Tissues: Left breast, NOS Procedures: Surgery Specimen Level IV HEADER OPERATION: Left breast ultrasound-guided wire localized partial mastectomy PRE-OP DIAGNOSIS: Left breast mass TISSUE SUBMITTED: Left breast mass MICROSCOPIC DIAGNOSIS Left breast, lumpectomy: Fibroadenoma. Nonproliferative fibrocystic change. AM:martha 02/26/2021 MICROSCOPIC DESCRIPTION Slides are reviewed. GROSS DESCRIPTION Received in fixative is one container labeled with the patient's name and designated left breast mass. The specimen consists of an irregular fragment of white-yellow fibrofatty tissue measuring 5 x 3.5 x 2.5 cm and weighing 25.6 gm. A metallic wire is present in the specimen. No orientation is provided. The external surface is inked to reveal a ash, somewhat gelatinous nodule measuring 4 x 3.5 x 2 cm. The remainder of the breast parenchyma is yellow and fatty. No other mass or nodules are identified. Floor Covering Printer Assistant sections are submitted in seven cassettes as follows: 1-4 ? nodule, 5-7 ? customer service representative teller sections of uninvolved breast parenchyma adjacent to nodule. / AM:martha 02/23/21 TC:1 CPT: 91413
[2021-02-22] MEDS: Bupivacaine Mpf 0.5% 30 ML VIAL (10:45)
--- NOTE | 2021-02-22 10:56 | OP.PCM_ITS ---
Problems Associated Problem List Diagnoses (1) Breast mass, left: Report of Operation Date of Procedure: 02/22/21 Pre-Operative Diagnosis: 2 left breast masses Post-Operative Diagnosis: Same Surgery/Procedure Performed:: Left partial mastectomy with excision of 2 left breast masses with ultrasound-guided wire localization Specimen's removed: Left breast masses Description of Procedure: Patient was brought back to the operating room and general anesthesia was induced. The left breast was inspected with ultrasound and both the larger mass and adjacent small mass were identified. The skin was prepped and using a Kopan's needle under ultrasound guidance the wire was placed into the smaller mass. Next the left breast was prepped and draped in usual solomon rile fashion and an incision was marked over the larger mass. An incision was made with a scalpel and electrocautery was used to raise flaps. The wire was delivered into the incision. Electrocautery was used to dissect free the larger mass and the smaller mass as well which had the wire inside of it. They were sent together as 1 mass for pathology. The cavity was irrigated and suctioned dry and electrocautery was used to maintain hemostasis. The incision was closed with interrupted 3-0 Vicryl suture as well as running 4-0 Monocryl suture and Dermabond. Patient was taken to PACU in stable condition. Admit VTE Documentation VTE Mechan Device Prophylaxis: SCD's
--- NOTE | 2021-02-22 10:58 | EX.PCM.DISCH ---
Discharge Instructions Procedure Breast Surgery Diet Discharge Diet: No restrictions Activity Discharge Activity: May Not Drive (for 2-3 days or while taking narcotic pain medications.) May shower in (days): 1 Lifting Restrictions: 10 lbs for 1 week Dressing / Incision Call your doctor if your incision/area has: Continuous Slow Oozing, Sudden Increased Bleeding, Increased Pain/ Swelling, Increased Redness, Foul Smelling Discharge and Swelling at the incision site Call your doctor if you observe: Fever of 101 or Higher Suture Line Care: Avoid Pulling/Pushing and Avoid Pinching/Bending Cleanse incision/area with: Soap & Water Follow Up Care Please Follow Up With: Suleman Grant MD When: Please call to schedule 2 week follow up appointment. [phone] Test Results: Test results from this visit will be discussed in further detail at your follow-up appointment, if applicable. Discharge Plan Admission Attending Provider: Suleman Grant Primary Care Provider: Wilbur Andrade Discharge Orders/Prescriptions Prescriptions: New oxycodone-acetaminophen [Percocet] 5-325 mg tablet 1 tab PO Q4H PRN (Reason: pain) 5 Days Qty: 20 RF: 0 No Action (DME) blood pressure monitor [Blood Pressure Kit] Kit See Rx Instructions .ROUTE .MEDSUPPLY Qty: 1 RF: 0 tolterodine [Detrol LA] 2 mg capsule,extended release 24hr 2 mg PO DAILY RF: 0 sumatriptan succinate [Imitrex] 25 mg tablet See Rx Instructions PO .COMPLEX PRN (Reason: migraines) RF: 0 citalopram [Celexa] 20 mg tablet 20 mg PO DAILY RF: 0 benazepril 20 mg tablet 20 mg PO DAILY Qty: 90 RF: 1 amlodipine 10 mg tablet 10 mg PO DAILY Qty: 40 RF: 0 Other Ambulatory Orders: 12 Lead EKG (Routine) Timeframe: [id number] Location: None Selected Ordered By: Dr. Angel Gates Referrals / Follow Up: Wilbur Andrade DO [Primary Care Provider] - Disposition Disposition (needs filled in before D/C Order can be placed): Home, Self Care
[2021-02-22 11:06] VITALS: BP 141/82; BP 169/102; PULSE 65; RESP 16; TEMP 36.3; O2SAT 100
[2021-02-22 11:15] VITALS: BP 141/82; BP 146/102; PULSE 72; RESP 16; O2SAT 100
[2021-02-22 11:28] VITALS: BP 141/82; BP 151/98; PULSE 56; RESP 16; TEMP 36.2; O2SAT 99
[2021-02-22 11:58] VITALS: BP 127/85; BP 141/82; PULSE 60; RESP 16; TEMP 36.6; O2SAT 96
== END 2021-02-22 12:36 | disposition home or self-care (01) ==
LOC: SDC 08:14 → AC 08:14
PROVIDERS: Anesthesiology; PCP Family Medicine; Referring Provider Surgery; Visit Provider Surgery
PROC: (CPT 19301; principal; 2021-02-22 09:45)
DX: D24.2 Benign neoplasm of left breast (principal); I10 Essential (primary) hypertension; F32.A Depression, unspecified; F41.9 Anxiety disorder, unspecified; F17.200 Nicotine dependence, unspecified, uncomplicated; Z79.899 Other long term (current) drug therapy; Z20.822 Contact with and (suspected) exposure to COVID-19
CPT/HCPCS: 00400; 19301; 36415; 85027; 87426; 88305; 88307; 93005; C9803; J7120; J2405

== ENCOUNTER 2021-04-12 09:06 | Outpatient (CLI) | payer BC, SELFPAY ==
--- NOTE | 2021-04-12 09:17 | US_ITS ---
STUDY: ULTRASOUND BREAST - LEFT REASON FOR EXAM: Female, 45 years old. Follow-up for prior resection of left breast masses. TECHNIQUE: Axial and longitudinal images of the LEFT breast were performed with a high resolution ultrasound transducer. # OF IMAGES: 30 COMPARISON: Comparison is made with prior examination dated 02/06/2021. FINDINGS: LEFT Breast: The superior aspect of the left breast was examined by ultrasound. The previously seen complex solid and cystic nodules at the 12 o''clock position of the breast not been resected. No sonographic and amount is seen at this time. US/Breast Limited Unilateral IMPRESSION: No sonographic abnormalities are seen at this time. ASSESSMENT CATEGORY: BIRADS Category 2: Benign. A letter regarding these results will be sent to the patient by the facility within 30 days. Electronically Signed: Calos Vo MD at 10:37 EST ,
== END 2021-04-12 23:59 | disposition short-term general hospital (02) ==
LOC: OPUS 09:07 → US 09:19
PROVIDERS: PCP Family Medicine; Referring Provider Surgery; Visit Provider Surgery
DX: N63.20 Unspecified lump in the left breast, unspecified quadrant (principal)
CPT/HCPCS: 76642

== ENCOUNTER 2022-05-24 22:21 | Emergency (ER) | payer OTHER, SELFPAY ==
[2022-05-24 22:23] VITALS: BP 94/68; PULSE 91; RESP 18; TEMP 36.7; O2SAT 99
--- NOTE | 2022-05-24 22:47 | EDS_ITS ---
HPI History of Present Illness Chief Complaint: Substance Abuse Narrative Narrative: 44-year-old female presenting via EMS with alcohol intoxication. She was found in the street unconscious. Patient is alert and awake but refuses to talk. PFSH PFSH Medical History unable to obtain Allergy/AdvReac Type Severity Reaction Status Date / Time No Known Allergies Allergy Verified 05/24/22 22:33 Surgical History unable to obtain Social History Smoking Status: Current every day smoker tobacco type: cigarettes ROS ROS ED Constitutional Constitutional ED: Reports sweats Psychiatric Psychiatric: Reports suicidal thoughts EXAM Physical Exam Const Vital Signs: 05/24/22 22:23 Temperature 98.0 F Temperature Source Temporal Pulse Rate 91 Respiratory Rate 18 Blood Pressure 94/68 Blood Pressure Mean 76 Pulse Ox 99 Oxygen Delivery Method Room Air Positive well nourished Constitutional Narrative: Appears intoxicated General Appearance ED: NAD HEENT Reports moist mucous membranes atraumatic Eyes PERRL and EOMs intact bilaterally Neck no lymphadenopathy Chest Wall inspection of chest normal and palpation of chest normal Resp normal respiratory effort Auscultation: Negative for rales, rhonchi or wheezes Cardio regular rate and regular rhythm GI soft to palpation Palpation: Negative for tender or guarding Neuro Sensorium / Orientation: alert Psych Psych Narrative: Appears intoxicated MDM MDM MDM Narrative Medical decision making narrative: Patient presenting via EMS with alcohol intoxication. She was found in the street. Her boyfriend states that they were at the local [employer] drinking beer all day. He estimates she drank about 12 beers. He states that when she drinks too much she stops talking. He states that he was trying to get her home but she could not walk. He initially tried to carry her but stated he left her on the porch so he could go get somebody to drive her home. He states 5-minute later he returned and saw the ambulance. Patient is talking more now that her boyfriend is here. Patient states she just laid down in the street. She denies any pain. She is not nauseous or vomiting. Again she does appear intoxicated, but she does want to go home. Her boyfriend is here and he states has been drinking but he is not drunk. He has a sober ride for them. Since he does not have any signs of trauma I feel she is stable for discharge home. Impression: 1. Alcohol intoxication Discharge Plan Triage Chief Complaint: Substance Abuse ED Provider: Flip Farrell Dx/Rx/DC Orders Instructions: ED Alcohol Abuse Primary Care Provider: NOT,DEFINED Referrals: NOT,DEFINED [Primary Care Provider] - Disposition Disposition: Home, Self Care
== END 2022-05-24 23:00 | disposition home or self-care (01) ==
LOC: ED 23:01
PROVIDERS: Emergency Provider Student in an Organized Health Care Education/Training Program; PCP Family Medicine; Visit Provider Student in an Organized Health Care Education/Training Program
DX: F10.129 Alcohol abuse with intoxication, unspecified (principal); Y90.9 Presence of alcohol in blood, level not specified; F17.210 Nicotine dependence, cigarettes, uncomplicated
CPT/HCPCS: 99284

== ENCOUNTER → 2024-04-28 | Outpatient (CLI) | payer OTHER, SELFPAY ==
[2024-04-28 17:06] LABS: ALB/GLOB Ratio 1.1 RATIO (0.9-2.4); AST(SGOT) 14 U/L (15-37); Alanine Aminotransfer ALT/SGPT 26 U/L (13-56); Albumin, Serum 3.9 g/dL (3.2-5.0); Alkaline Phosphatase 105 U/L (45-117); Anion Gap 9 (5-15); BUN 14 mg/dL (7-18); BUN/Creat Ratio 18.5 RATIO (10-20); Chloride 108 mmol/L (98-107); Cholesterol 223 mg/dL (200); Creatinine, Serum 0.76 mg/dL (0.55-1.02); EST Glomerular Filtration Rate 87 mL/min (>60); Est Glom Filt Rate - Afr Amer 105 mL/min (>60); Globulin 3.6 g/dL (2.2-4.2); Glucose 96 mg/dL (74-106); High Density Lipoprotein 74 mg/dL; Potassium 3.7 mmol/L (3.5-5.1); Protein, Total 7.5 g/dL (6.4-8.2); Sodium Level 141 mmol/L (136-145); Triglycerides 240 mg/dL; Very Low Density Lipoprotein 48 mg/dL (5-40)
== END | disposition home or self-care (01) ==
LOC: BIMLAB 15:26
PROVIDERS: PCP Family Medicine; Referring Provider Family Medicine; Visit Provider Family Medicine
DX: Z00.00 Encounter for general adult medical examination without abnormal findings (principal); F17.200 Nicotine dependence, unspecified, uncomplicated
CPT/HCPCS: 36415; 80053; 80061

== ENCOUNTER → 2024-08-03 | Outpatient (CLI) | payer OTHER, SELFPAY ==
--- NOTE | 2024-08-03 15:15 | BI_ITS ---
EXAM: SCRN MAMM (CAD)W/SILVINO BILAT DATE: 08/03/2024 CLINICAL HISTORY: F, Age 48 y/o , SCREE BREAST CANCER RISK ASSESSMENT: Not reported TECHNIQUE: Bilateral screening digital breast tomosynthesis with 2D and 3D images. Computer aided detection. COMPARISON: None FINDINGS: TISSUE DENSITY: The breast tissue is heterogenously dense, which may obscure small masses. Bilateral Breast Mammographic Findings: Left: There is focal asymmetry in the upper outer left breast Right: No suspicious masses, calcifications or other abnormalities are identified. BI/SCRN MAMM (CAD)W/SILVINO BILAT IMPRESSION: OVERALL FINAL ASSESSMENT: BIRADS 0 Incomplete: Need additional imaging evaluati on and/or prior mammograms for comparison. RECOMMENDATION: Incomplete: Need additional imaging evaluation with diagnostic left breast mamm ogram and ultrasound . A letter with findings and recommendations will be mailed to the patient. Reading Location: [id number]
== END | disposition home or self-care (01) ==
PROVIDERS: PCP Family Medicine; Referring Provider Family Medicine; Visit Provider Family Medicine
DX: Z12.31 Encounter for screening mammogram for malignant neoplasm of breast (principal)
CPT/HCPCS: 77063; 77067